=== PATIENT | male | born 1985 | race Caucasian/White ===

== ENCOUNTER 2019-07-21 06:00 | Inpatient (IN) ==
[2019-07-21] MEDS ORDERED: IOPAMIDOL 100 ML BOTTLE IV ONE (06:01)
[2019-07-21] MEDS ORDERED: PHENobarb/HYOSCY/ATROPINE/SCOP 1 DOSE BOTTLE PO ONE (06:16)
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
[2019-07-21 06:59] LABS: Basophils # (Auto) 0.05 K/mcL (0.00-0.30); Basophils % (Auto) 0.6 % (0.0-2.0); Eosinophils # (Auto) 1.03 K/mcL (0.00-0.70); Eosinophils % (Auto) 11.5 % (0.0-7.0); Granulocytes % (Auto) 54.6 % (38.0-78.0); Hematocrit 49.4 % (40.1-51.0); Hemoglobin 17.3 g/dL (13.7-17.5); Lymphocytes # (Auto) 2.25 K/mcL (1.50-4.80); Lymphocytes % (Auto) 25.1 % (15.5-49.0); Mean Cell Volume 85.2 fL (80.0-100.0); Mean Platelet Volume 9.8 fL (7.4-10.4); Monocytes # (Auto) 0.74 K/mcL (0.10-0.90); Monocytes % (Auto) 8.2 % (1.0-12.0); Platelet Count 330 K/mcL (140-440)
[2019-07-21 07:18] LABS: ALT/SGPT 18 U/l (0-40); AST/SGOT 18 U/l (0-37); Albumin 4.2 gm/dL (3.2-5.2); Albumin/Globulin Ratio 1.7 (1.0-2.3); Alkaline Phosphatase 80 U/L (39-117); Bilirubin,Total 0.3 mg/dL (0.0-1.0); Blood Urea Nitrogen 22 mg/dl (6-20); C-Reactive Protein < 0.3 mg/dl (0.0-0.8); Calcium 9.4 mg/dl (8.6-10.4); Carbon Dioxide 25 mmol/L (22-30); Chloride 101 mmol/L (96-108); Globulin 2.5 gm/dL (2.2-3.7); Glomerular Filtration Rate 87; Glucose 95 mg/dL (70-105)
[2019-07-21] MEDS ORDERED: PANTOPRAZOLE 40 MG VIAL IV ONE (07:24)
[2019-07-21] MEDS ORDERED: ONDANSETRON 4 MG/2 ML VIAL IV PRN ×2 (09:25→13:40)
[2019-07-21] MEDS ORDERED: LACTATED RINGERS 1,000 ML IV SCH (09:30)
--- NOTE | 2019-07-21 12:07 | XRay Report ---
CLINICAL INFORMATION: epigastric abdominal pain COMPARISON: None. FINDINGS: There are scattered fluid levels within nondilated stomach small and large bowel suggesting mild ileus. No free air, soft tissue mass or pathologic calcification. IMPRESSION: Mild ileus Interpreted and Authenticated by: Linwood Perrin 07/21/19
--- NOTE | 2019-07-21 12:38 | Cat Scan Report ---
CLINICAL INFORMATION: Acute epigastric pain COMPARISON: 12/30/[address] TECHNIQUE: Following enteric contrast, 80 cc of Isovue-370 were injected intravenously, and 60 seconds later, 0.625 mm helical slices were obtained from the mid heart through the subtrochanteric regions. Following reconstruction, 2.5 mm sagittal, coronal and axial reformatted images were processed and reviewed at bone, lung and soft tissue windows. Five minutes later, 0.625 mm helical slices were obtained from the mid heart through the kidneys and viewed at soft tissue windows.The exam was performed using radiation dose optimization techniques including, but not limited to, automated exposure control, adjustment of the mA and/or kV according to patient size and use of iterative reconstruction technique. FINDINGS: Lung bases show no abnormality - no effusion. The visualized heart is normal. Abdominal images show minimal fatty change within the liver which are stable - no focal hepatic lesion. Gallbladder and bile ducts are normal: CBD is 5 mm. Both kidneys, adrenal glands, spleen, pancreas and aorta are normal in size, configuration and attenuation without focal lesion. 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 The SMA, [place] renal and common internal and external iliac arteries are widely patent. Pelvic images show urinary bladder, prostate and seminal vesicles to be normal. Small to moderate simple free intraperitoneal fluid is located the deep true and false pelvis with a small amount in the right pericolonic gutter and in the upper right ureter was not region. There is no free air. The stomach, small and large bowel show symmetric dilatation compatible with mild ileus. No focal GI pathology is appreciated. Bone windows show no osseous abnormality IMPRESSION: 1. Small to moderate free intraperitoneal fluid in the paraduodenal region, right paracolic gutter and deep true and false pelvis. No free peritoneal air. This finding, in conjunction with a acute severe epigastric pain, could indicate a perforated gastric or anterior duodenal ulcer. Suggest upper endoscopy. 2. 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 3. Mild ileus Interpreted and Authenticated by: Linwood Perrin 07/21/19
--- NOTE | 2019-07-21 12:38 | Ultrasound Report ---
CLINICAL INFORMATION: Epigastric pain COMPARISON: None. FINDINGS: The gallbladder and bile ducts, liver, both kidneys, pancreas, spleen, aorta and inferior vena cava are all normal in size and echotexture without focal abnormality. No free fluid identified. IMPRESSION: Normal abdominal ultrasound. Interpreted and Authenticated by: Linwood Perrin 07/21/19
[2019-07-21] MEDS: SUCRALFATE 1 GM/10 ML ORAL.SUSP PO SCH ×3 (13:19→20:51)
[2019-07-21] MEDS ORDERED: HYDROmorphone 0.5 MG/0.5 ML SYRINGE IV PRN (13:40)
[2019-07-21] MEDS ORDERED: PROMETHAZINE 25 MG/ML VIAL IV PRN (13:44)
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
[2019-07-21] MEDS: 0.9 % SODIUM CHLORIDE 10 ML SYRINGE IV SCH ×2 (13:58→20:57)
[2019-07-21] MEDS: 0.9 % SODIUM CHLORIDE 1,000 ML IV SCH ×2 (14:37→20:58)
[2019-07-21] MEDS: GABAPENTIN 300 MG CAPSULE PO SCH ×2 (15:05→23:13)
[2019-07-21] MEDS: PANTOPRAZOLE 40 MG VIAL IV SCH (16:51)
[2019-07-21] MEDS ORDERED: PANTOPRAZOLE 40 MG VIAL IV SCH (19:00)
[2019-07-21] MEDS ORDERED: DOCUSATE SODIUM 100 MG CAPSULE PO SCH (21:00)
[2019-07-21] MEDS ORDERED: SENNOSIDES 1 TABLET PO SCH (21:00)
[2019-07-22] MEDS: 0.9 % SODIUM CHLORIDE 1,000 ML IV SCH ×3 (03:26→20:19)
[2019-07-22] MEDS: GABAPENTIN 300 MG CAPSULE PO SCH ×3 (08:56→23:33)
[2019-07-22] MEDS: 0.9 % SODIUM CHLORIDE 10 ML SYRINGE IV SCH ×3 (08:59→20:20)
[2019-07-22] MEDS: PANTOPRAZOLE 40 MG VIAL IV SCH ×2 (09:12→17:16)
[2019-07-22] MEDS: SUCRALFATE 1 GM/10 ML ORAL.SUSP PO SCH ×4 (09:48→20:10)
--- NOTE | 2019-07-22 12:12 | General Surgery Progress Note ---
Subjective Patient reports: feels better, pain is less, no flatus, no bowel movement, afebrile Narrative: Note initiated : 07/22/19 at 12:10 pm Service Date, if different from initiated Date: [] Patient: Yakov Cordon 34 y/o M admitted on 07/21/19 for mid abd. pain. Chief Complaint: patient states that he feels much better. He does not have. He does not have nausea or vomiting. He has been afebrile. On close questioning he states that he actually took Naprosyn twice daily since his surgery on his left hand in April. This is probably the cause of his dyspepsia and probable perforated ulcer.] Objective Temp Pulse Resp BP Pulse Ox 98.3 F 71 20 118/79 100 07/22/19 11:09 07/22/19 11:09 07/22/19 11:09 07/22/19 11:09 07/22/19 11:09 - Additional Data Intake & Output - Last 24 hours: Intake & Output 07/20/19 07/21/19 07/22/19 07/23/19 05:59 05:59 05:59 05:59 Intake Total 2073 1000 Output Total 1175 Balance 898 1000 Weight 167 lb 1.6 oz - General physical appearance well developed, well nourished, no distress - Eyes PERRL, normal ocular movement - ENT normal pinna, normal nares, normal mucosa, no hearing loss, no congestion - Neck no masses, no bruits, trachea midline, no lymphadenopathy, no venous distension - Respiratory normal expansion, normal respiratory effort, clear to auscultation - Cardiovascular Cardiovascular exam: Present: normal rate and rhythm, RRR, +S1, +S2. Absent: JVD, tachycardia - Abdomen soft, non tender (abdominal exam is benign; he has no tenderness at this time. He denies nausea), bowel sounds (present), surgical scars (none), masses (none) - Integumentary no rash, no growths, no abnormal pigmentation - Neurologic normal coordination, normal sensation - Musculoskeletal normal gait, normal posture - Psychiatric oriented to time, oriented to person, oriented to place, speech is normal, memory intact - Labs 07/21/19 06:25 07/21/19 06:25 Assessment and Plan (1) Dyspepsia Status: Acute Assessment and plan: All clinical symptoms have resolved Current Visit: Yes (2) Duodenal ulcer disease Status: Acute Assessment and plan: We will continue present medication. Follow-up CT on Monday Current Visit: Yes - Time Spent With Patient Total time spent is greater than 50% in coordination of care (as documented) at patient's floor/unit and/or counseling patient:
[2019-07-23] MEDS: 0.9 % SODIUM CHLORIDE 1,000 ML IV SCH ×5 (03:12→23:23)
[2019-07-23 06:17] LABS: Basophils # (Auto) 0.02 K/mcL (0.00-0.30); Basophils % (Auto) 0.3 % (0.0-2.0); Eosinophils # (Auto) 0.75 K/mcL (0.00-0.70); Eosinophils % (Auto) 10.3 % (0.0-7.0); Granulocytes % (Auto) 55.3 % (38.0-78.0); Hematocrit 39.5 % (40.1-51.0); Hemoglobin 13.6 g/dL (13.7-17.5); Lymphocytes # (Auto) 1.93 K/mcL (1.50-4.80); Lymphocytes % (Auto) 26.4 % (15.5-49.0); Mean Cell Volume 86.1 fL (80.0-100.0); Mean Corpuscular HGB Conc 34.4 g/dL (31.0-36.0); Mean Platelet Volume 9.9 fL (7.4-10.4); Monocytes # (Auto) 0.56 K/mcL (0.10-0.90); Monocytes % (Auto) 7.7 % (1.0-12.0); Platelet Count 242 K/mcL (140-440); RBC 4.59 M/mcL (4.63-6.08); Red Cell Distribution Width 11.6 % (11.5-14.5); WBC 7.3 K/mcL (4.50-11.00)
[2019-07-23 07:06] LABS: Bilirubin,Direct < 0.2 mg/dL (0.0-0.3); Chloride 106 mmol/L (96-108)
[2019-07-23 07:12] LABS: ALT/SGPT 13 U/l (0-40); AST/SGOT 21 U/l (0-37); Albumin 3.1 gm/dL (3.2-5.2); Albumin/Globulin Ratio 1.5 (1.0-2.3); Alkaline Phosphatase 60 U/L (39-117); Bilirubin,Total 0.5 mg/dL (0.0-1.0); Blood Urea Nitrogen 9 mg/dl (6-20); Calcium 8.4 mg/dl (8.6-10.4); Carbon Dioxide 23 mmol/L (22-30); Globulin 2.1 gm/dL (2.2-3.7); Glomerular Filtration Rate 87; Glucose 84 mg/dL (70-105); Lactate Dehydrogenase 207 U/L (94-250); Phosphorous 3.4 mg/dL (2.7-4.5); Triglycerides 131 mg/dl (<150); Uric Acid 6.3 mg/dL (2.5-8.0)
[2019-07-23] MEDS: PANTOPRAZOLE 40 MG VIAL IV SCH ×2 (07:33→17:19)
[2019-07-23] MEDS: SUCRALFATE 1 GM/10 ML ORAL.SUSP PO SCH ×4 (07:33→20:14)
[2019-07-23] MEDS: GABAPENTIN 300 MG CAPSULE PO SCH ×3 (07:37→23:23)
[2019-07-23] MEDS: 0.9 % SODIUM CHLORIDE 10 ML SYRINGE IV SCH ×3 (07:37→23:23)
--- NOTE | 2019-07-23 13:04 | General Surgery Progress Note ---
Subjective Patient reports: feels better, pain is less, flatus, bowel movement, afebrile Narrative: Note initiated : 07/23/19 at 1:02 pm Service Date, if different from initiated Date: [] Patient: Yakov Cordon 34 y/o M admitted on 07/21/19 for mid abd. pain. Chief Complaint: [patient states that he feels. He denies pain. He states that he has hunger. He denies nausea. He's had some small brown bowel movements and denies melena. White blood count 7.3, hemoglobin 13.6, hematocrit 39.5, potassium 3.9, BUN 9, creatinine 1.1.] Objective Temp Pulse Resp BP Pulse Ox 97.7 F 69 16 118/77 100 07/23/19 11:20 07/23/19 03:11 07/23/19 11:20 07/23/19 11:20 07/23/19 11:20 - Additional Data Intake & Output - Last 24 hours: Intake & Output 07/21/19 07/22/19 07/23/19 07/24/19 05:59 05:59 05:59 05:59 Intake Total 2073 3660 1000 Output Total 1175 Balance 898 3660 1000 Weight 167 lb 1.6 oz 166 lb 14.4 oz - General physical appearance well developed, well nourished, no distress - Eyes PERRL, normal ocular movement - ENT normal pinna, normal nares, normal mucosa, no hearing loss, no congestion - Neck no masses, no bruits, trachea midline, no lymphadenopathy, no venous distension - Respiratory normal expansion, normal respiratory effort, clear to auscultation - Cardiovascular Cardiovascular exam: Present: normal rate and rhythm, RRR, +S1, +S2. Absent: JVD, tachycardia - Abdomen non tender (no abdominal tenderness in epigastrium or right lower quadrant), bowel sounds (present), surgical scars (none), masses (none) - Integumentary no rash, no growths, no abnormal pigmentation - Neurologic normal coordination, normal sensation - Musculoskeletal normal gait, normal posture, other ( absent left lower arm and hand) - Psychiatric oriented to time, oriented to person, oriented to place, speech is normal, memory intact - Labs 07/23/19 05:15 07/23/19 05:15 Diabetes panel 07/23/19 Range/Units 05:15 Sodium 140 (133-145) mmol/L Potassium 3.9 (3.3-5.1) mmol/L Chloride 106 (96-108) mmol/L Carbon Dioxide 23 (22-30) mmol/L BUN 9 (6-20) mg/dl Creatinine 1.1 (0.7-1.2) mg/dl Glucose 84 (70-105) mg/dL Calcium 8.4 L (8.6-10.4) mg/dl AST 21 (0-37) U/l ALT 13 (0-40) U/l Alkaline Phosphatase 60 (39-117) U/L Total Protein 5.2 L (5.9-8.4) gm/dL Albumin 3.1 L (3.2-5.2) gm/dL Triglycerides 131 (<150) mg/dl Calcium panel 07/23/19 Range/Units 05:15 Calcium 8.4 L (8.6-10.4) mg/dl Phosphorus 3.4 (2.7-4.5) mg/dL Albumin 3.1 L (3.2-5.2) gm/dL Pituitary panel 07/23/19 Range/Units 05:15 Sodium 140 (133-145) mmol/L Potassium 3.9 (3.3-5.1) mmol/L Chloride 106 (96-108) mmol/L Carbon Dioxide 23 (22-30) mmol/L BUN 9 (6-20) mg/dl Creatinine 1.1 (0.7-1.2) mg/dl Glucose 84 (70-105) mg/dL Calcium 8.4 L (8.6-10.4) mg/dl Adrenal panel 07/23/19 Range/Units 05:15 Sodium 140 (133-145) mmol/L Potassium 3.9 (3.3-5.1) mmol/L Chloride 106 (96-108) mmol/L Carbon Dioxide 23 (22-30) mmol/L BUN 9 (6-20) mg/dl Creatinine 1.1 (0.7-1.2) mg/dl Glucose 84 (70-105) mg/dL Calcium 8.4 L (8.6-10.4) mg/dl Total Bilirubin 0.5 (0.0-1.0) mg/dL AST 21 (0-37) U/l ALT 13 (0-40) U/l Alkaline Phosphatase 60 (39-117) U/L Total Protein 5.2 L (5.9-8.4) gm/dL Albumin 3.1 L (3.2-5.2) gm/dL Assessment and Plan (1) Dyspepsia Status: Acute Assessment and plan: All clinical symptoms have resolved Current Visit: Yes (2) Duodenal ulcer disease Status: Acute Assessment and plan: We will continue present medication. CT of abdomen and pelvis in a.m. May have clear liquids after CT is completed Current Visit: Yes - Time Spent With Patient Total time spent is greater than 50% in coordination of care (as documented) at patient's floor/unit and/or counseling patient:
[2019-07-24] MEDS: 0.9 % SODIUM CHLORIDE 10 ML SYRINGE IV SCH ×2 (06:09→13:48)
[2019-07-24] MEDS: 0.9 % SODIUM CHLORIDE 1,000 ML IV SCH ×2 (06:09→08:30)
[2019-07-24 06:16] LABS: Basophils # (Auto) 0.02 K/mcL (0.00-0.30); Basophils % (Auto) 0.3 % (0.0-2.0); Eosinophils # (Auto) 0.63 K/mcL (0.00-0.70); Eosinophils % (Auto) 10.9 % (0.0-7.0); Granulocytes % (Auto) 49.9 % (38.0-78.0); Hematocrit 37.5 % (40.1-51.0); Lymphocytes # (Auto) 1.77 K/mcL (1.50-4.80); Lymphocytes % (Auto) 30.6 % (15.5-49.0); Mean Cell Volume 83.7 fL (80.0-100.0); Mean Corpuscular HGB Conc 34.7 g/dL (31.0-36.0); Mean Platelet Volume 9.7 fL (7.4-10.4); Monocytes # (Auto) 0.48 K/mcL (0.10-0.90); Monocytes % (Auto) 8.3 % (1.0-12.0); Platelet Count 233 K/mcL (140-440); RBC 4.48 M/mcL (4.63-6.08); Red Cell Distribution Width 11.4 % (11.5-14.5); WBC 5.8 K/mcL (4.50-11.00)
[2019-07-24 06:47] LABS: ALT/SGPT 15 U/l (0-40); AST/SGOT 20 U/l (0-37); Albumin 3.2 gm/dL (3.2-5.2); Albumin/Globulin Ratio 1.8 (1.0-2.3); Alkaline Phosphatase 56 U/L (39-117); Bilirubin,Direct < 0.2 mg/dL (0.0-0.3); Bilirubin,Total 0.5 mg/dL (0.0-1.0); Blood Urea Nitrogen 6 mg/dl (6-20); Calcium 8.3 mg/dl (8.6-10.4); Carbon Dioxide 24 mmol/L (22-30); Chloride 106 mmol/L (96-108); Globulin 1.8 gm/dL (2.2-3.7); Glomerular Filtration Rate 111; Glucose 79 mg/dL (70-105); Lactate Dehydrogenase 162 U/L (94-250); Phosphorous 3.4 mg/dL (2.7-4.5); Triglycerides 104 mg/dl (<150); Uric Acid 6.4 mg/dL (2.5-8.0)
[2019-07-24] MEDS: PANTOPRAZOLE 40 MG VIAL IV SCH (06:57)
[2019-07-24] MEDS: SUCRALFATE 1 GM/10 ML ORAL.SUSP PO SCH ×2 (06:57→11:57)
[2019-07-24] MEDS: GABAPENTIN 300 MG CAPSULE PO SCH ×2 (07:02→14:49)
[2019-07-24] MEDS ORDERED: IOPAMIDOL 100 ML BOTTLE IV ONE (07:36)
--- NOTE | 2019-07-24 08:08 | Cat Scan Report ---
History: Follow-up perforated duodenum TECHNIQUE: The patient was imaged following injection of nonionic contrast but no oral contrast, scanning during the portal venous phase from the diaphragm to the symphysis pubis. Sagittal and coronal reformats were created. Radiation exposure was limited using dose reduction technology. FINDINGS: Lung bases are clear. The liver and spleen are normal in size and homogeneous. Gallbladder and bile ducts are normal. There is no evidence of mass or inflammation the pancreas. The stomach is decompressed. There is circumferential thickening of the wall of the third portion of the duodenum. It measures up to 1 cm in thickness. There is a small collection of air-filled ulcers along the superior aspect of the third segment of the duodenum. There is no associated retroperitoneal abscess free air or fluid collection. The inflammation of the duodenum has improved since the prior CT done on 07/21/19. The previously seen free fluid in the peritoneal space has reabsorbed. There is no evidence of intra-abdominal abscess. There is radiopaque material in the distal small intestine and colon extending to the sigmoid. This may be from a prior study. There is no contrast in the stomach duodenum or proximal jejunum. The jejunum and ileum are normal in caliber and noninflamed. The colon is normal. The appendix is noninflamed. The adrenals and kidneys are normal. Aorta and inferior vena cava are normal. There is a short segment high-grade stenosis at the origin of the celiac artery. This may be due to median arcuate ligament syndrome. This is a stable finding compared with the prior CT. Urinary bladder prostate and seminal vesicles are normal. There is no adenopathy. IMPRESSION: Improving inflammation of the duodenum with small gas-filled ulcers along the superior portion of the third segment No intra-abdominal abscess, resolution of previously seen ascites Interpreted and Authenticated by: Bruce Noriega 07/24/19
--- NOTE | 2019-07-24 13:57 | Discharge Summary ---
Providers - Providers Patient information: Note initiated : 07/24/19 at 1:53 pm Service Date, if different from initiated Date: [] Patient: Yakov Cordon 34 y/o M admitted on 07/21/19 for Mid Abd Pain. Chief Complaint: [] Date of admission: 07/21/19 Discharge date: 07/24/19 Attending physician: Berlin Lau Hospitalization Hospital Course: 34-year-old male admitted with acute onset of epigastric right upper quadrant and right lower quadrant pain on the morning of admission. The pain increased in severity and he had nausea but no vomiting. He was seen in the emergency room where a CT showed thickening of the duodenum with periduodenal fluid and fluid tracking along the right gutter into the right lower quadrant. There is no free air noted. It was suspected that the patient had a perforated duodenum probably due to medication. Initially he denied taking any nonsteroidal anti- inflammatory drugs but 2 days post admission it was noted that his home medication confirmed that he was taken naproxen 550 mg twice daily for over 6 weeks. 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 The patient was admitted and made nothing by mouth. He was treated with pantop razole and Carafate slurry. He made daily improvement. States she of the abdomen repeated this morning shows resolution of the periduodenal fluid but still with some thickening of the duodenal wall with some air in what appears to be ulcerative. He has tolerated clear liquids and is not having any discomfort. He is discharged on a full liquid diet for the next 5 days after which he is advised to gradually increase his diet. He will be treated with pantoprazole and Carafate for 6 weeks. I will see him in the office in 2 weeks and schedule him for upper endoscopy.. Discharge diagnosis: duodenal ulcer with perforation Reason for admission: acute abdominal pain with nausea Procedures: none Pertinent studies/significant findings: CT of abdomen and pelvis with IV contrast 2 Complications: None Exam Temp Pulse Resp BP Pulse Ox 98.3 F 76 16 127/85 99 07/24/19 12:00 07/24/19 12:00 07/24/19 12:00 07/24/19 12:00 07/24/19 12:00 - General physical appearance well developed, well nourished, no distress - Eyes PERRL, normal ocular movement - ENT normal pinna, normal nares, normal mucosa, no hearing loss, no congestion - Head Head exam IM: Present: atraumatic, normocephalic - Neck no masses, no bruits, trachea midline, no lymphadenopathy, no venous distension - Cardiovascular Cardiovascular exam IM: Present: normal rate and rhythm - Respiratory normal expansion, normal respiratory effort, clear to percussion, clear to auscultation - Abdomen Abdomen: Present: soft, non tender (no tenderness in epigastrium right upper quadrant or right lower quadrant), bowel sounds Hernia: Present: none - Genitourinary Present: normal penis with no external lesions - Integumentary Present: no rash, no growths, no abnormal pigmentation - Neurologic Present: normal coordination, normal sensation - Musculoskeletal Present: normal gait, normal posture - Psychiatric Present: oriented to time, oriented to person, oriented to place, speech is normal, memory intact Discharge Plan - Patient/Caregiver Discharge Instructions Activity: increase activity as tolerated Diet: Full Liquid (5 days then advance to GI soft diet) Additional Instructions: Did not take any [id number] arthritis medication May take Tylenol as needed Prescriptions: Sucralfate [Carafate] 1 gm PO QID #120 tab Transmission Status: Pending to [facility] Pantoprazole [Protonix] 40 mg PO BIDAC #60 tab Transmission Status: Pending to [facility] - Follow up Plan Follow up with: Berlin Lau MD [Physician] - 08/08/19 10:45 am Disposition: Home, Self-Care Care Plan Goals: This discharge packet is provided to you to help keep you informed about your care. We want to ensure you get everything you need when you go home. You will also be receiving a call from us in a few days to follow up with you and see how you are doing since your discharge. This gives us a chance to listen to any concerns you maybe experiencing since you were discharged or any additional needs you may have, as well as providing us feedback on your care experience. We strive to always provide excellent care and thank you for your feedback and for choosing [facility]. Prognosis: Good Rehab Potential: Good I certify that the patient requires SNF services.: No Overall status at discharge: patient is progressing back to baseline Pending Studies Resuscitation Status Full Code Diet Clear Liquid Diet Start MonJul 23 837 Gabapentin (Neurontin) 300 mg PO Q8H MARILIN Last Admin: 07/24/19 07:02 Dose: 300 mg Documented by: Admin: 07/23/19 23:23 Dose: 300 mg Documented by: Admin: 07/23/19 14:49 Dose: 300 mg Documented by: Admin: 07/23/19 07:37 Dose: 300 mg Documented by: Admin: 07/22/19 23:33 Dose: 300 mg Documented by: Admin: 07/22/19 16:18 Dose: 300 mg Documented by: Admin: 07/22/19 08:56 Dose: 300 mg Documented by: Admin: 07/21/19 23:13 Dose: 300 mg Documented by: Admin: 07/21/19 15:05 Dose: 300 mg Documented by: BEV Sodium Chloride (Sodium Chloride 0.9%) 1,000 mls @ 150 mls/hr IV .[id number] [facility] Admin: 07/24/19 08:30 Dose: Not Given Documented by: Admin: 07/24/19 06:09 Dose: 150 mls/hr Documented by: Infusion: 07/24/19 06:04 Dose: 150 mls/hr Documented by: Admin: 07/23/19 23:23 Dose: 150 mls/hr Documented by: Infusion: 07/23/19 23:23 Dose: 150 mls/hr Documented by: Admin: 07/23/19 17:10 Dose: 150 mls/hr Documented by: [email or web address] Infusion: 07/23/19 17:10 Dose: 150 mls/hr Documented by: Admin: 07/23/19 13:52 Dose: Not Given Documented by: Admin: 07/23/19 11:27 Dose: 150 mls/hr Documented by: Infusion: 07/23/19 09:53 Dose: 150 mls/hr Documented by: Admin: 07/23/19 03:12 Dose: 150 mls/hr Documented by: [email or web address] Infusion: 07/23/19 03:00 Dose: 150 mls/hr Documented by: Admin: 07/22/19 20:19 Dose: 150 mls/hr Documented by: [email or web address] Infusion: 07/22/19 17:34 Dose: 150 mls/hr Documented by: Admin: 07/22/19 10:53 Dose: 150 mls/hr Documented by: Infusion: 07/22/19 10:07 Dose: 150 mls/hr Documented by: Admin: 07/22/19 03:26 Dose: 150 mls/hr Documented by: Infusion: 07/22/19 03:26 Dose: 150 mls/hr Documented by: Admin: 07/21/19 20:58 Dose: 150 mls/hr Documented by: Infusion: 07/21/19 20:58 Dose: 150 mls/hr Documented by: Admin: 07/21/19 14:37 Dose: 150 mls/hr Documented by: BEV Pantoprazole Sodium (Protonix) 40 mg IV BIDAC [facility] Admin: 07/24/19 06:57 Dose: 40 mg Documented by: Admin: 07/23/19 17:19 Dose: 40 mg Documented by: Admin: 07/23/19 07:33 Dose: 40 mg Documented by: Admin: 07/22/19 17:16 Dose: 40 mg Documented by: Admin: 07/22/19 09:12 Dose: 40 mg Documented by: Admin: 07/21/19 16:51 Dose: 40 mg Documented by: BEV Sodium Chloride (Saline Flush) 10 ml IV Q8 [facility] Admin: 07/24/19 13:48 Dose: Not Given Documented by: Admin: 07/24/19 06:09 Dose: Not Given Documented by: Admin: 07/23/19 23:23 Dose: Not Given Documented by: Admin: 07/23/19 13:53 Dose: Not Given Documented by: Admin: 07/23/19 07:37 Dose: Not Given Documented by: Admin: 07/22/19 20:20 Dose: Not Given Documented by: Admin: 07/22/19 16:29 Dose: Not Given Documented by: Admin: 07/22/19 08:59 Dose: Not Given Documented by: Admin: 07/21/19 20:57 Dose: Not Given Documented by: Admin: 07/21/19 13:58 Dose: Not Given Documented by: BEV Sucralfate (Carafate) 1 gm PO ACHS MARILIN [facility] Admin: 07/24/19 11:57 Dose: 1 gm Documented by: Admin: 07/24/19 06:57 Dose: 1 gm Documented by: Admin: 07/23/19 20:14 Dose: 1 gm Documented by: Admin: 07/23/19 17:19 Dose: 1 gm Documented by: Admin: 07/23/19 11:27 Dose: 1 gm Documented by: Admin: 07/23/19 07:33 Dose: 1 gm Documented by: Admin: 07/22/19 20:10 Dose: 1 gm Documented by: Admin: 07/22/19 17:18 Dose: 1 gm Documented by: Admin: 07/22/19 11:56 Dose: 1 gm Documented by: Admin: 07/22/19 09:48 Dose: 1 gm Documented by: Admin: 07/21/19 20:51 Dose: 1 gm Documented by: Admin: 07/21/19 16:52 Dose: 1 gm Documented by: Admin: 07/21/19 13:19 Dose: Not Given Documented by: BEV Shift Summary 07/24/19 05:49 Shift Summary by Jaelyn Briceño slept all night. Up ad joe in room, voiding per bathroom. Did ambulate halls last night. Will be having a CT this morning, then can have a clear diet. He is hoping the CT shows he's healed & can go home today. Initialized on 07/24/19 05:49 - END OF NOTE
== END 2019-07-24 14:50 | disposition home or self-care (01) | DRG 382 ==
LOC: ED 06:00 → MEDSUR 06:00
PROVIDERS: ADMIT Family Medicine Adult Medicine; ATTEND Family Medicine Adult Medicine